=== PATIENT | male | born 1945 | race Caucasian/White ===

== ENCOUNTER → 2018-02-04 | Outpatient (CLI) | payer MEDICARE, OTHER ==
[~2018-02-04] MED LIST: AMARYL1 MG PO; ASPIR 8181 MG PO; EFFIENT10 MG PO; GLUCOPHAGE1000 MG PO; HYDROCHLOROTH12.5 M2 PO; NITROGLYCERIN0.4 MG SUBLING; PRINIVIL20 M1 PO; SYMBICORT160 MCG/4. INH; ZOCOR20 MG PO
[2018-02-04 10:54] LABS: CREATININE 0.9 mg/dL (0.6-1.3)
== END ==
LOC: M.LAB 10:30 → M.MRI 11:30
PROVIDERS: Internal Medicine
DX: E11.9 Type 2 diabetes mellitus without complications (principal); I10 Essential (primary) hypertension; G44.201 Tension-type headache, unspecified, intractable; M54.2 Cervicalgia

== ENCOUNTER → 2018-02-09 | Outpatient (CLI) | payer MEDICARE, OTHER | LOC: M.MRI 12:37 | DX: M50.323 Other cervical disc degeneration at C6-C7 level (principal); M47.892 Other spondylosis, cervical region; G31.9 Degenerative disease of nervous system, unspecified; I10 Essential (primary) hypertension; E11.9 Type 2 diabetes mellitus without complications; G44.201 Tension-type headache, unspecified, intractable ==

== ENCOUNTER → 2019-02-22 | Outpatient (CLI) | payer MEDICARE, OTHER ==
--- NOTE | 2019-02-22 16:31 | CARDNUC ---
[place] [address] CARDIAC NUCLEAR IMAGING REPORT Name: JASON WHITTAKER Room: [facility]#: [id number] Admission: 02/22/19 Attend Phys: Hesham [place] Discharge: Date of : 49 Date of Service: 02/22/19 1631 Report #: [id number] THIS REPORT FOR: //name// APPROVED REPORT Imaging Protocol: Rest Tc-99m/Stress Tc-99m 1 day Study performed: 02/22/2019 11:45:00 Indication: Chest pain, s/p stent, increased fatigue. [facility]: Lydia Montanez RN Ht: 6 ft 0 in Wt: 230 lbs BSA: 2.26 m2 BMI: 31.19 Medical History Medical History: Angina, CAD s/p stent, Diabetes, Fatigue, Former Smoker, HTN, Hyperlipidemia, Obesity , RBBB, Weakness. Medications: Clopidogrel, Metformin, Glimepiride, Lisinopril HCT, Simvastatin, ASA 81 Mg. Allergies: Cipro, Vicodin, levofloxacin, Repaglinide, Sulfa ABT. Cardiac Risk Factors: Age, DM, FHX of CAD, HTN, Hyperlipidemia, Tobacco History (Former), Past Smoker, PCI, RBBB. Previous Cardiac Procedures: PCI Pretest Chest Pain Characteristics: No chest pain Exercise History: Sedentary Physical Disabilities: Increased fatigue, weakness, unstable gait. Meds Held (24 hrs): None Resting Data Rest SPECT myocardial perfusion imaging was performed in supine position 30 minutes following the intravenous injection of 11.0 mCi of Tc-99m Sestamibi. Time of rest injection: 1225 Date: 02/22/2019 The images were gated to evaluate regional wall motion and calculate left ventricular ejection fraction. Administration Route: IV Administration Site: Left Hand Pharmacologic Stress Pharmacologic stress test was performed by injecting Regadenoson 0.4 mg IV push over 10-15 seconds immediately [place] [address] CARDIAC NUCLEAR IMAGING REPORT Name: JASON WHITTAKER Kia Room: [facility]#: [id number] Admission: 02/22/19 Attend Phys: Hesham [place] Discharge: Date of : 49 Date of Service: 02/22/19 1631 Report #: [id number] injection of 35.2 mCi of Tc-99m Sestamibi. Time of stress injection: 1350 Administration Route: IV Administration Site: Left Hand Gated Stress SPECT was performed 40 minutes after stress injection. The images were gated to evaluate regional wall motion and calculate left ventricular ejection fraction. Prone imaging was performed. Stress Test Details Stress Test: Pharmacologic stress was paired with low level exercise. Reason for pharmacologic stress test: Increased fatigue, weakness, unsteady gait.. HR Max Heart Rate (APMHR): 149 bpm Resting HR: 72 bpm Target HR (85% APMHR): 126 bpm Max HR Achieved: 108 bpm % of APMHR: 72 Recovery HR: 91 bpm HR response to stress: Normal HR response to stress BP Resting BP: 102/69 mmHg Max BP: 134/98 mmHg Recovery BP: 130/72 mmHg BP response to stress: Normal blood pressure response to stress. ECG Resting ECG: nsr rbbb Stress ECG: nsr rbbb ST Change: none Arrhythmia: none Recovery ECG: nsr rbbb Recovery ST Change: none Recovery Arrhythmia: none Clinical Reason for Termination: Completed protocol Stress Symptoms: Fatigue, Weakness, Lightheaded, Dizziness, Chest pain, Abdominal discomfort, Dyspnea. Exercise duration: 3 min 59 sec Exercise capacity: 2.07 MET[place] [address] CARDIAC NUCLEAR IMAGING REPORT Name: JASON WHITTAKER Room: [facility]#: [id number] Admission: 02/22/19 Attend Phys: Hesham [place] Discharge: Date of : 49 Date of Service: 02/22/19 1631 Report #: [id number] 73 year old male presented with increased fatigue, weakness and CP s/p stent. Patient stated he could only walk a slow, flat treadmill. Patient tolerated walking Lexiscan with reported strong dizziness at end of walk, patient assisted to bed to sit. Recovery was effective with PO caffeine. Patient escorted by staff to Nuclear Medicine for images. Patient stable with no complaints at that time. Stress ECG Conclusion nondiagnostic ECG Study Quality Study: Fair Artifact: Moderate Increased GI uptake Lung Uptake: Normal Study Data At rest, the left ventricular ejection fraction was 71%.. Post stress, the left ventricular ejection was 71%.. SSS: 0 SRS: 0 SDS: 0 TID = 1.01. Perfusion STRESS SPECT images show a small mild intensity inferior defect which is noted to be fixed when compared to the SPECT rest images. There is uniform uptake of tracer in all other segments. The prone set shows normalization of the inferior defect indicating it is likely artifact. No reversible defects are seen. Images were reviewed using FitBark. Wall Motion normal all segments Nuclear Conclusion ECG Findings: non-diagnostic Clinical Findings: negative for ischemia Nuclear Findings: negative for ischemia Exercise Capacity: not assessed Left Ventricular Function: normal Risk Study: low Negative nuclear stress test [place] [address] CARDIAC NUCLEAR IMAGING REPORT Name: JASON WHITTAKER [facility] [id number] Admission: 02/22/19 Attend Phys: Hesham [place] Discharge: Date of : 49 Date of Service: 02/22/19 1631 Report #: [id number] <Conclusion> nondiagnostic ECG <ELECTRONICALLY SIGNED> By: Vega Saha MD, FACC 02/22/191630 30 30 Vega Saha MD, FACC /INF
== END ==
LOC: M.NUC 09-03 13:59
DX: R07.9 Chest pain, unspecified (principal); I25.10 Atherosclerotic heart disease of native coronary artery without angina pectoris; E78.5 Hyperlipidemia, unspecified; I10 Essential (primary) hypertension; E11.9 Type 2 diabetes mellitus without complications; E66.9 Obesity, unspecified; Z95.0 Presence of cardiac pacemaker; Z95.5 Presence of coronary angioplasty implant and graft; Z88.8 Allergy status to other drugs, medicaments and biological substances; Z88.1 Allergy status to other antibiotic agents; Z88.2 Allergy status to sulfonamides; Z87.891 Personal history of nicotine dependence; Z82.49 Family history of ischemic heart disease and other diseases of the circulatory system; Z79.84 Long term (current) use of oral hypoglycemic drugs; Z79.899 Other long term (current) drug therapy

== ENCOUNTER → 2019-08-09 | Outpatient (CLI) | payer MEDICARE, OTHER ==
[2019-08-09 07:02] LABS: CREATININE 0.9 mg/dL (0.6-1.3)
== END ==
LOC: M.LAB 06:30 → M.MRI 07:30
PROVIDERS: Internal Medicine
DX: G31.9 Degenerative disease of nervous system, unspecified (principal); J32.8 Other chronic sinusitis; R90.82 White matter disease, unspecified; E11.9 Type 2 diabetes mellitus without complications; I10 Essential (primary) hypertension; E66.09 Other obesity due to excess calories; Z68.31 Body mass index [BMI] 31.0-31.9, adult; Z88.0 Allergy status to penicillin; Z88.2 Allergy status to sulfonamides

== ENCOUNTER 2020-07-25 09:13 | Observation (INO) | payer MEDICARE, OTHER ==
[2020-07-25] VITALS (15 sets, daily range): BP systolic 129–156; BP diastolic 65–93
[~2020-07-25] VITALS: Ht 182.9 cm; Wt 104.3 kg
[~2020-07-25 09:13] MED LIST changes: +CELEBREX 200 M200 M1 PO; +GLUCOPHAGE500 MG PO; +LISINOPRIL-HCT1 EAC1 PO; +PLAVIX 75 MG TA75 MG PO
[2020-07-25 09:49] LABS: HEMATOCRIT 42.3 % (42.0-52.0); HEMOGLOBIN 14.1 gm/dL (14.0-18.0); MCH 30.6 pg (26.0-34.0); MCHC 33.2 g/dL (28.0-37.0); MCV 92.1 fL (80.0-100.0); MPV 9.2 fl. (7.2-11.1); RBC 4.59 mil/uL (4.50-6.00); RDW-CV 14.2 % (10.5-14.5); WBC 7.5 thou/uL (4.0-11.0)
[2020-07-25 09:54] LABS: ANION GAP 5 mmol/L (7-16); BUN 17 mg/dL (7-18); CALCIUM 8.8 mg/dL (8.5-10.1); CHLORIDE 102 mmol/L (98-107); CO2 32 mmol/L (21-32); GLUCOSE 206 mg/dL (70-99); POTASSIUM 4.1 mmol/L (3.5-5.1); SODIUM 139 mmol/L (136-145)
[2020-07-25 09:57] LABS: APTT 26.8 Seconds (25.0-31.3); PROTIME 10.8 Seconds (9.20-11.50)
[2020-07-25 09:59] LABS: ALBUMIN 3.5 g/dL (3.4-5.0); ALKALINE PHOSPHATASE 61 U/L (46-116); SGOT 15 U/L (15-37); SGPT 24 U/L (30-65); TOTAL BILIRUBIN 0.5 mg/dL (<0.1-1.0); TOTAL PROTEIN 7.1 g/dL (6.4-8.2)
[2020-07-25 10:11] LABS: CHOLESTEROL 132 mg/dL (<200); HDL CHOLESTEROL 35 mg/dL (>40); LDL CHOLESTEROL 77 mg/dL (<100); SERUM ASSESSMENT Clear; TC:HDL 3.8 Ratio (Not establshd); TRIGLYCERIDE 103 mg/dL (<150); VLDL 21 mg/dL (<40)
--- NOTE | 2020-07-25 15:23 | EKG ---
[place] [address] ELECTROCARDIOGRAM REPORT Name: JASON WHITTAKER Room: [address] M.R.#: [id number] Admission: 07/25/20 Attend Phys: Hesham [place] Discharge: Date of : 49 Date of Service: 07/25/20 1033 Report #: [id number] THIS REPORT FOR: //name// [facility] Test Date: 2020-07-25 Test Time: 10:33:33 Pat Name: JASON WHITTAKER Department: Room: [facility] Gender: M Escrow Officer: ROBIN : 1945 Requested By: Matthew Valentin Order Number: [id number] Vivek MD: Matthew Valentin Measurements Intervals [place] Rate: 66 P: -7 [place]: 188 QRS: 21 QRSD: 143 T: -13 QT: 432 QTc: 453 Interpretive Statements Sinus rhythm Right bundle branch block Inferior infarct, age indeterminate Compared to ECG 12/18/2016 08:14:05 No significant changes Electronically Signed On 07-25-2020 15:23:32 CDT by Matthew Valentin [email or web address] <ELECTRONICALLY SIGNED> By: Matthew Valentin MD, [facility] 07/25/20 1523 1033 1033 Matthew Valentin MD, [facility] /EPI
--- NOTE | 2020-07-25 15:25 | EKG ---
[place] [address] ELECTROCARDIOGRAM REPORT Name: JASON WHITTAKER Room: [address] M.R.#: [id number] Admission: 07/25/20 Attend Phys: Hesham [place] Discharge: Date of : 49 Date of Service: 07/25/20 1329 Report #: [id number] THIS REPORT FOR: //name// [facility] Test Date: 2020-07-25 Test Time: 13:29:42 Pat Name: JASON WHITTAKER Department: Room: [facility] Gender: M Slack Line Yarder: : 1945 Requested By: Matthew Valentin Order Number: [id number] Vivek MD: Matthew Valentin Measurements Intervals [place] Rate: 73 P: -5 [place]: 187 QRS: -3 QRSD: 147 T: -14 QT: 421 QTc: 464 Interpretive Statements Sinus rhythm Right bundle branch block Inferior infarct, age indeterminate Compared to ECG 07/25/2020 10:33:33 No significant changes Electronically Signed On 07-25-2020 15:24:59 CDT by Matthew Valentin [email or web address] <ELECTRONICALLY SIGNED> By: Matthew Valentin MD, [facility] 07/25/20 1524 1329 1329 Matthew Valentin MD, [facility] /EPI
--- NOTE | 2020-07-25 15:37 | CARD ---
[address] [address] CARDIAC CATH REPORT Name: JASON WHITTAKER Room: [address] Tj M.RSabrina#: [id number] Admission: 07/25/20 Attend Phys: Matthew Valentin MD, Discharge: Date of : 49 Report #: [id number] THIS REPORT FOR: //name// cc: PRESTON - Family physician unknown FAM - Family physician unknown ~ APPROVED REPORT Study performed: 07/25/2020 10:38:11 Patient Details Patient Status: Out-Patient Room #: The patient is a 74 year-old male Event Personnel Matthew Valentin Lumber Driver, Rodney Euceda RN Land Classifier, Bj Mukherjee Scrub, Sindi Yanez RTR Monitor Procedures Performed Art Access - R femoral artery, Left Heart Cath w/or w/o Coronaries LHC , RD w/Atherectomy Single LAD DESATH, Hemostasis w/ Angioseal Indication Unstable angina Risk Factors Hypercholesterolemia, Hypertension Previous Procedures/Diagnoses Previous PCI Admission/Lab Medications/Medications given during procedure Angiomax IV 16 ml, Angiomax Drip IV 36.57 ml per hr, Nitroglycerin IC 350 mcg total, Zofran (Ondansetron) IV 4 mg, Effient PO 60 mg, Aspirin PO 324 mg Procedure Narrative The patient was brought electively to the Cardiac Catheterization Laboratory and was prepped and draped in a sterile manner. The right femoral was infiltrated with 2% Lidocaine subcutaneous anesthesia. A 6F Weston sheath was inserted into the right femoral artery. Coronary angiography was performed using coronary diagnostic catheters. The right coronary system was accessed and visualized with a 6F JR4 catheter. The left [place] [address] CARDIAC CATH REPORT Name: JASON WHITTAKER [address]: [address] [id number] Admission: 07/25/20 Attend Phys: Matthew Valentin MD, Discharge: Date of : 49 Report #: [id number] visualized with a 6F JL4 catheter. The left ventricle was accessed and visualized with a 6F Pigtail catheter. Left ventricular/Aortic Valve gradient assessed via catheter pullback. Left ventriculogram was performed in TORRES projection. Pre-demployment femoral angiogram was performed . Closure device was deployed with a 6 Fr Angioseal STS. The patient tolerated the procedure well and there were no complications associated with the procedure. There was no hematoma. Intraoperative Conscious Sedation Sedation start time: 10:48 Case end Time: 11:48 Fentanyl 75 mcg Versed 4 mg Fluoro Time: 17.7 minutes Dose: DAP 132901 cGycm2 3257 mGy Contrast Type and Amount: Visipaque 380 ml Diagnostic Cath Left Main 0% narrowing LAD 90% proximal and 75% mid LAD in-stent restenosis Diagonal 1 40% mid vessel narrowing Diagonal 2 Very small vessel 80% proximal narrowing Circumflex 30% narrowing of the midportion of the first marginal branch Right Coronary Dominant vessel with 40% proximal narrowing Left Ventriculography The left ventricle is normal in size with normal contractility. The left ventricular ejection fraction is estimated to be 65%. Left ventricular wall motion abnormalities are not present. There is no mitral insufficiency. Hemodynamics The aortic pressure is 162/76 mmHg with a mean of 100 mmHg. The left ventricular pressure is 161/2 mmHg with a mean of mmHg. The left ventricular end diastolic pressure is 14 mmHg. PCI Technique Lesion Anticoagulation was achieved with Angiomax. Patient was preloaded with Angiomax IV 16 ml. Percutaneous coronary intervention was performed on the proximal left anterior descending artery segment. The lesion stenosis prior to intervention was 90% with DANNY 3 flow. A 6FR LAUNCHER EBU 3.5 Guide Catheter was used to engage the lm ostium. A BMW 190cm Interventional Guidewire [place] [address] CARDIAC CATH REPORT Name: JASON WHITTAKER Room: [address] M.R.#: [id number] Admission: 07/25/20 Attend Phys: Matthew Valentin MD, Discharge: Date of : 49 Report #: [id number] BALLOON DILATION A Balloon catheter NC Euphora 2.5x12 was inserted and inflated up to 17.00atm for 10seconds. Additional Inflation: 20.00atm for 7seconds. Additional Inflation: 16.00atm for 6seconds. An Athrectomy cutting balloon catheter AngioSculpt PTCA 2.5 x 10mm was inserted and inflated up to 16 fozia for 12 seconds. Additional inflations: 18 fozia for 10 seconds; 20 fozia for 16 seconds; 20 fozia for 13 seconds; 22 fozia for 11 seconds. STENT DEPLOYMENT A drug-eluting stent Rivas RX Stent 2.16N51ei was inserted and inflated up to 16.00atm for 9seconds. Additional Inflation: 18.00atm for 11seconds. Additional Inflation: 20.00atm for 9seconds. Final angiography reveals 0 % stenosis with DANNY 3 flow. PCI Technique Lesion 2 Percutaneous Coronary Intervention was performed on the mid left anterior descending artery segment. Patient was preloaded with Angiomax IV 16 ml. The lesion stenosis prior to intervention was 75% with DANNY 3 flow. A 6FR LAUNCHER EBU 3.5 Guide Catheter was used to engage the lm ostium. A BMW 190cm Interventional Guidewire was used to cross the lesion. Balloon Dilation A Balloon catheter NC Euphora 2.5x12 was inserted and inflated up to 18.00atm for 14seconds. An Athrectomy cutting balloon catheter AngioSculpt PTCA 2.5 x 10mm was inserted and inflated up to 16 fozia for 10 seconds. Additional inflation: 18 fozia for 11 seconds. Stent Deployment A drug-eluting stent [place] RX Stent 2.92Y60xk was inserted and inflated up to 15.00atm for 8seconds. Additional Inflation: 18.00atm for 5seconds. Final angiography reveals 0 % stenosis with DANNY 3 flow. Conclusion 1. Significant coronary artery disease characterized by the following: A 90% proximal and 75% mid LAD in-stent restenosis B 30% narrowing of the midportion of the first marginal branch of the [address] [address] CARDIAC CATH REPORT Name: JASON WHITTAKER Room: [address] Tj Franco#: [id number] Admission: 07/25/20 Attend Phys: Matthew Valentin MD, Discharge: Date of : 49 Report #: [id number] nondominant circumflex C dominant right coronary with 40% proximal narrowing 2. Normal left ventricular systolic function, estimated ejection fraction being 65% 3. Moderate systemic systolic hypertension 4. Successful angioplasty atherotomy/atherectomy and deployment of sequential drug-eluting stents at the sites of 90% and 75% proximal and mid LAD stenosis with 0% residual narrowings and DANNY-3 flow to the distal vessel Recommendations Cardiac Risk Reduction Program Aggressive Medical Therapy Medications Administered Aspirin (any) Prasugrel Diagnostic Cath Approved by: Matthew Valentin MD Date/Time: 07/25/2020 15:32:37 <ELECTRONICALLY SIGNED> By: Matthew Valentin MD, [facility] 07/25/20 1536 1536 1536Joalessandra Valentin MD, FACC /INF
[2020-07-26] VITALS: BP 148/79
[2020-07-26 03:47] VITALS: BP 156/75
[2020-07-26 06:03] LABS: HEMATOCRIT 41.6 % (42.0-52.0); HEMOGLOBIN 13.8 gm/dL (14.0-18.0); MCH 30.8 pg (26.0-34.0); MCHC 33.2 g/dL (28.0-37.0); MCV 92.9 fL (80.0-100.0); MPV 9.5 fl. (7.2-11.1); RBC 4.48 mil/uL (4.50-6.00); RDW-CV 14.1 % (10.5-14.5); WBC 6.3 thou/uL (4.0-11.0)
[2020-07-26 06:13] LABS: ALBUMIN 3.2 g/dL (3.4-5.0); ALKALINE PHOSPHATASE 55 U/L (46-116); ANION GAP 8 mmol/L (7-16); BUN 15 mg/dL (7-18); CALCIUM 8.8 mg/dL (8.5-10.1); CHLORIDE 106 mmol/L (98-107); CO2 26 mmol/L (21-32); CREATININE 0.9 mg/dL (0.6-1.3); GLUCOSE 186 mg/dL (70-99); SGOT 14 U/L (15-37); SGPT 21 U/L (30-65); SODIUM 140 mmol/L (136-145); TOTAL BILIRUBIN 0.7 mg/dL (<0.1-1.0); TOTAL PROTEIN 6.6 g/dL (6.4-8.2)
[2020-07-26 06:58] LABS: TROPONIN-I LEVEL <0.06 ng/mL (<0.06)
[2020-07-26 09:14] VITALS: BP 152/83
[2020-07-26] MEDS ORDERED: EFFIENT10 MG PO (10:12)
[2020-07-26] MEDS ORDERED: NITROSTAT0.4 M1 SUBLING (10:13)
[2020-07-26 10:14] VITALS: BP 152/83
[2020-07-26 11:00] VITALS: BP 152/83
--- NOTE | 2020-07-26 12:40 | EKG ---
[place] [address] ELECTROCARDIOGRAM REPORT Name: REMEDIOSJASON MARINELLI Room: [address] M.R.#: [id number] Admission: 07/25/20 Attend Phys: Hesham [place] Discharge: 07/26/20 Date of : 49 Date of Service: 07/26/20 0400 Report #: [id number] THIS REPORT FOR: //name// [facility] Test Date: 2020-07-26 Test Time: 04:00:37 Pat Name: JASON WHITTAKER Department: Room: [facility] Gender: M Onsite Case Manager: ADINA : 1945 Requested By: Matthew Valentin Order Number: [id number] Vivek MD: Matthew Valentin Measurements Intervals [place] Rate: 74 P: -11 SD: 175 QRS: 16 QRSD: 152 T: -14 QT: 409 QTc: 454 Interpretive Statements Sinus rhythm Right bundle branch block Inferior infarct, age indeterminate Compared to ECG 07/25/2020 13:29:42 No significant changes Electronically Signed On 07-26-2020 12:40:39 CDT by Matthew Valentin [email or web address] <ELECTRONICALLY SIGNED> By: Matthew Valentin MD, [facility] 07/26/20 1240 0400 0400 Matthew Valentin MD, [facility] /EPI
--- NOTE | 2020-07-26 13:23 | D ---
[address] [address] DISCHARGE SUMMARY Name: JASON WHITTAKER Room: [address] Tj Franco#: [id number] Admission: 07/25/20 Attend Phys: Matthew Valentin MD, Discharge: 07/26/20 Date of : 49 Report #: [id number] THIS REPORT FOR: //name// cc: FAM - Family physician unknown FAM - Family physician unknown ~ THIS REPORT FOR: //name// CC: FAM unknown Matthew Valentin DATE OF SERVICE: 07/26/2020 FINAL DISCHARGE DIAGNOSES: 1. Unstable angina. 2. Coronary artery disease. 3. Status post percutaneous coronary intervention with atherectomy and stenting of the left anterior descending. 4. Hyperlipidemia. 5. Type 2 diabetes. 6. Hypertension. 7. Exogenous obesity. PROCEDURES: 07/25/2020 -- left heart catheterization, left ventriculography, selective coronary arteriography, and percutaneous coronary intervention with angioplasty, atherectomy and stenting of tandem 90 and 75% proximal and mid LAD stenosis. HOSPITAL COURSE: The patient is a very pleasant 74-year-old male with complex coronary artery disease, status post prior PCIs. He has underlying hyperlipidemia, diabetes, hypertension, and weight excess. Recently, he has noted marked decrease in functional capacity with dyspnea on moderate exertion, chest fullness or pressure. This was similar to his prior ischemic syndrome. He had been able to walk 3 miles without difficulty; lately he is unable to complete a 1/2 mile to a mile without significant dyspnea and chest discomfort. The pattern was compatible with unstable angina. In this context, I performed cardiac catheterization on 07/25/2020, which revealed significant coronary artery disease characterized by tandem 90 and 75% proximal and mid LAD in-stent restenotic lesions. Left ventricular function was normal with an ejection fraction of 65%. There were no significant stenoses of the circumflex and right coronary artery. Given this data, I performed angioplasty, arthrotomy/atherectomy, and stenting with deployment of two drug-eluting stents at the sites of 90 and 75% [place] [address] DISCHARGE SUMMARY Name: JASON WHITTAKER Room: [address] Tj Franco#: [id number] Admission: 07/25/20 Attend Phys: Matthew Valentin MD, Discharge: 07/26/20 Date of : 49 Report #: [id number] mid LAD stenosis with 0% residual narrowing at both sites following stent deployment and DANNY 3 flow of the distal vessel. He did well post-procedurally and there was good hemostasis at the right femoral site of catheterization. LABORATORY DATA: On 07/26 revealed a sodium of 140, potassium 4.0, BUN 15, creatinine 0.9, glucose 186. Hemoglobin 13.8, white blood cell count 6300 and 130,000 platelets. Troponin was 0.06. DISCHARGE MEDICATIONS: The patient was discharged to home in stable condition on the following medications: Aspirin 81 mg daily, glimepiride or Amaryl 1 mg daily, lisinopril/hydrochlorothiazide 20/12.5 one tablet daily, metformin 500 mg b.i.d. to be resumed on 07/27/2020, prasugrel 10 mg daily with a 60 mg loading dose started on 07/25, simvastatin 10 mg daily, Celebrex 200 mg on a p.r.n. basis for arthritic discomfort, and p.r.n. sublingual nitroglycerin. I will plan to see the patient in followup in 4-6 weeks. Therefore, the patient is discharged to home in stable condition on the aforementioned medications with followup as described above. <ELECTRONICALLY SIGNED> By: Matthew Valentin MD, FACC 07/26/20 1323 0933 0951Matthew Valentin MD, FAC /nt
== END 2020-07-26 11:15 | disposition home or self-care (01) ==
LOC: M.CL 09:13 → M.2W 11:25 → M.TBA-CV 11:25 → M.2W 12:13
PROVIDERS: ADMIT Internal Medicine; ATTEND Internal Medicine
DX: I25.110 Atherosclerotic heart disease of native coronary artery with unstable angina pectoris (principal); E78.5 Hyperlipidemia, unspecified; I10 Essential (primary) hypertension; E11.9 Type 2 diabetes mellitus without complications; E66.09 Other obesity due to excess calories; Z68.31 Body mass index [BMI] 31.0-31.9, adult; Z79.899 Other long term (current) drug therapy; Z20.828 Contact with and (suspected) exposure to other viral communicable diseases

== ENCOUNTER → 2020-12-17 | Outpatient (CLI) | payer MEDICARE, OTHER ==
[~2020-12-17] MED LIST changes: +NITROSTAT0.4 M1 SUBLING
--- NOTE | 2020-12-18 18:16 | CARDNUC ---
[place] [address] CARDIAC NUCLEAR IMAGING REPORT Name: JASON WHITTKAER Room: [facility]#: [id number] Admission: 12/17/20 Attend Phys: Hesham Fishman Discharge: Date of : 49 Date of Service: 12/18/20 1816 Report #: [id number] THIS REPORT FOR: cc: FAM - Family physician unknown FAM - Family physician unknown Stephen Cardozo MD [facility] ~ APPROVED REPORT Imaging Protocol: Stress Tc-99m/Rest Tc-99m 1 day Study performed: 12/17/2020 12:30:00 Indication: chest pain, ZUÑIGA, CAD s/p PCI. Patient Location: Out-Patient Stress Tech: Khadra White Stress Nurse: Lydia Montanez RN Ht: 5 ft 10 in Wt: 230 lbs BSA: 2.21 m2 BMI: 32.99 Medical History Medical History: Chest pain, ZUÑIGA, Sleep Apnea, COPD, Back surgery, RBBB, CAD s/p stent, HTN, HLD, DM II, past smoker, obesity. Medications: ASA 81 Mg, Lisinopril-HCTZ, Prasugrel, Simvastatin, NTG. Allergies: Sulfa ABX, Rapaglinide, Ciprofloaxin, Hydrocodone, Levofloxacin. Cardiac Risk Factors: Age, DM, FHX of CAD, HTN, Hyperlipidemia, SOB, Past Smoker, RBBB. Previous Cardiac Procedures: PCI Pretest Chest Pain Characteristics: No chest pain Exercise History: Indeterminate Physical Disabilities: Slow, shuffled gait. Meds Held (24 hrs): NTG. Resting Data Rest SPECT myocardial perfusion imaging was performed in supine position 30 minutes following the intravenous injection of 10.0 mCi of Tc-99m Sestamibi. Time of rest injection: 13:00 The images were gated to evaluate regional wall motion and calculate left ventricular ejection fraction. Administration Route: IV Administration Site: [place] [address] CARDIAC NUCLEAR IMAGING REPORT Name: JASON WHITTAKER [id number] Admission: 12/17/20 Attend Phys: Hesham Fishman Discharge: Date of : 49 Date of Service: 12/18/20 1816 Report #: [id number] Pharmacologic Stress Pharmacologic stress test was performed by injecting Regadenoson 0.4 mg IV push over 10-15 seconds immediately followed by the intravenous injection of 29.8 mCi of Tc-99m Sestamibi. Time of stress injection: 14:50 Administration Route: IV Administration Site: Left Heart Rate at time of stress injection: 107 bpm. Gated Stress SPECT was performed 40 minutes after stress injection. The images were gated to evaluate regional wall motion and calculate left ventricular ejection fraction. Prone imaging was performed. Stress Test Details Stress Test: Pharmacologic stress was paired with low level exercise. Reason for pharmacologic stress test: Slow, shuffled gait.. HR Max Heart Rate (APMHR): 147 bpm Resting HR: 78 bpm Target HR (85% APMHR): 124 bpm Max HR Achieved: 107 bpm % of APMHR: 72 Recovery HR: 92 bpm BP Resting BP: 119/73 mmHg Max BP: 152/75 mmHg Recovery BP: 111/66 mmHg ECG Resting ECG: Sinus Rhythm, RBBB Stress ECG: Sinus tachycardia , RBBB ST Change: None Arrhythmia: None Recovery ECG: Sinus Rhythm, RBBB Recovery ST Change: None Recovery Arrhythmia: None Clinical Reason for Termination: Completed protocol Stress Symptoms: Dyspnea, weakness, chest pain 5/10, headache, lightheaded/dizzy. Exercise duration: 4 min 00 sec Exercise capacity: 2.30 METs The patient reported 5 out of 10 chest pain [place] [address] CARDIAC NUCLEAR IMAGING REPORT Name: JASON WHITTAKER Room: [facility]#: [id number] Admission: 12/17/20 Attend Phys: Hesham Fishman Discharge: Date of : 49 Date of Service: 12/18/20 1816 Report #: [id number] protocol that resolved in recovery. Nurse Comments A 75 year old male presented for a walking Lexiscan for chest pain, ZUÑIGA, CAD s/p PCI. Treadmill tolerated to 3:00 then patient became dizzy/lightheaded and asked to stop. Remainder of test changed to sitting and swinging legs to 4:00. Recovery unremarkable. Patient was escorted via wheelchair to Nuclear Medicine for imaging. Patient was stable and stated he felt good at that time. Stress ECG Conclusion Baseline twelve-lead EKG shows sinus rhythm without significant ST segment or T wave abnormality. The patient has an underlying right bundle branch block. EKGs obtained during and post walking Lexiscan protocol show no significant ST segment changes when compared to baseline. There were no stress-induced arrhythmias. Study Quality Study: Good Artifact: No artifact Study Data At rest, the left ventricular ejection fraction was 71%.. Post stress, the left ventricular ejection was 74%.. TID = 0.96. Perfusion Perfusion images obtained at rest and post Lexiscan walking protocol show uniform uptake of the radioisotope throughout the myocardium. There were no defects to suggest infarct or ischemia. Wall Motion Normal left ventricular wall motion. Nuclear Conclusion ECG Findings: negative for ischemia Clinical Findings: equivocal Nuclear Findings: negative for ischemia Exercise Capacity: not assessed Left Ventricular Function: normal Risk Study: low Perfusion study show no defect to suggest infarct or ischemia. Left ventricular systolic function is normal on gated studies. Clinical findings of chest pain were likely due to medication effect. This is [place] [address] CARDIAC NUCLEAR IMAGING REPORT Name: JASON WHITTAKER Room: [facility]#: [id number] Admission: 12/17/20 Attend Phys: Hesham Fishman Discharge: Date of : 49 Date of Service: 12/18/20 1816 Report #: [id number] <Conclusion> Baseline twelve-lead EKG shows sinus rhythm without significant ST segment or T wave abnormality. The patient has an underlying right bundle branch block. EKGs obtained during and post walking Lexiscan protocol show no significant ST segment changes when compared to baseline. There were no stress-induced arrhythmias. <ELECTRONICALLY SIGNED> By: Stephne Cardozo MD, FACC 12/18/201815 15 15 Stephen Cardozo MD, FACC /INF
== END ==
LOC: M.NUC 08:00
PROVIDERS: ATTEND Internal Medicine
DX: I25.119 Atherosclerotic heart disease of native coronary artery with unspecified angina pectoris (principal); Z95.5 Presence of coronary angioplasty implant and graft

== ENCOUNTER → 2021-12-20 | Outpatient (CLI) | payer MEDICARE, OTHER ==
--- NOTE | 2021-12-21 12:47 | CARDNUC ---
[place] [address] CARDIAC NUCLEAR IMAGING REPORT Name: JASON WHITTAKER Room: [facility]#: [id number] Admission: 12/20/21 Attend Phys: Hesham Fishman Discharge: Date of : 49 Date of Service: 12/21/21 1247 Report #: [id number] THIS REPORT FOR: cc: Physician not on staff Physician not on staff Stephen Cardozo MD [facility] ~ APPROVED REPORT Study performed: 12/20/2021 13:37:43 Exam: Nuclear Stress Test Indication: Dyspnea Patient Location: Out-Patient Stress Nurse: Aishwarya Ivy RN Ht: 6 ft 0 in Wt: 220 lbs BSA: 2.22 m2 BMI: 29.83 Medical History Medical History: CAD s/p stent, Diabetes, HTN, Hyperlipidemia Medications: ASA-91, LISINOPRIL/HCTZ, NTG, PRASUGREL, SIMVASTATIN Allergies: MULTIPLE Cardiac Risk Factors: Age, Diabetes (insulin), FHX of CAD, HTN, Hyperlipidemia, Past Smoker Previous Cardiac Procedures: PCI Exercise History: Indeterminate Stress Test Details Stress Test: Pharmacologic stress testing performed using 0.4 mg of regadenoson per 5 mL given IV over 10 seconds. Reason for pharmacologic stress test: physical limitation. HR Resting HR: 69 bpm Max Heart Rate (APMHR): 146 bpm Max HR Achieved: 92 bpm Target HR (85% APMHR): 124 bpm % of APMHR: 63 Recovery HR: 82 bpm BP Resting BP: 142/80 mmHg Max BP: 118/[place] [address] CARDIAC NUCLEAR IMAGING REPORT Name: REMEDIOSJASON ISIS Room: [facility]#: [id number] Admission: 12/20/21 Attend Phys: Hesham Fishman Discharge: Date of : 49 Date of Service: 12/21/21 1247 Report #: [id number] ECG Resting ECG: Sinus Rhythm, RBBB Stress ECG: Sinus Rhythm, RBBB ST Change: None Arrhythmia: None Recovery ECG: Sinus Rhythm, RBBB Recovery ST Change: None Recovery Arrhythmia: None Clinical Reason for Termination: Completed protocol The patient had mild chest discomfort with Lexiscan infusion resolved with caffeine. Nurse Comments CAFFEINE 60 MG IVP GIVEN FOR CONTINUING CO OF "NOT FEELING RIGHT" , PATIENT BECAME CALMER AND DENIED CP OR OTHER PROBLEMS AFTER CAFFEINE Stress ECG Conclusion The baseline twelve-lead EKG shows sinus rhythm with right bundle branch block without significant ST segment abnormality. EKGs obtained during and post Lexiscan infusion show sinus rhythm with no significant ST segment changes when compared to baseline. There were no stress-induced arrhythmias. NM EXAM: Myocardial Perfusion REST/STRESS Resting Data Rest SPECT myocardial perfusion imaging was performed in supine position 30 minutes following the intravenous injection of 11.0 mCi of Tc-99m Sestamibi. Time of rest injection: 12:30 The images were gated to evaluate regional wall motion and calculate left ventricular ejection fraction. Administration Route: IV Pharmacologic Stress Pharmacologic stress test was performed by injecting Regadenoson 0.4 mg IV push followed by the intravenous injection of 35.3 mCi of Tc-99m Sestamibi. Time of stress injection: 13:45 Administration Route: IV Heart Rate at time of stress injection: 92 bpm. Gated Stress SPECT was performed 45 minutes [place] [address] CARDIAC NUCLEAR IMAGING REPORT Name: REMEDIOSJASONASHLEIGH MARINELLI Room: [facility]#: [id number] Admission: 12/20/21 Attend Phys: Hesham Fishman Discharge: Date of : 49 Date of Service: 12/21/21 1247 Report #: [id number] The images were gated to evaluate regional wall motion and calculate left ventricular ejection fraction. Prone imaging was performed. Study Quality Study: Good Artifact: No artifact Study Data At rest, the left ventricular ejection fraction was 75%.. Post stress, the left ventricular ejection was 73%.. TID = 0.98. Perfusion Perfusion images obtained in the supine position at rest and post Lexiscan stress show mild photopenia in the inferior inferolateral wall consistent with diaphragmatic attenuation artifact. Post-rest perfusion images obtained in the prone position show uniform uptake of the radioisotope throughout the myocardium. There were no defects to suggest infarct or ischemia. Wall Motion Normal left ventricular wall motion. Nuclear Conclusion ECG Findings: negative for ischemia Clinical Findings: equivocal Nuclear Findings: negative for ischemia Exercise Capacity: not assessed Left Ventricular Function: normal Risk Study: low Perfusion study show no defect to suggest infarct or ischemia. Left ventricular systolic function appears normal on gated studies. This is a low risk study. <Conclusion> The baseline twelve-lead EKG shows sinus rhythm with right bundle branch block without significant ST segment abnormality. EKGs obtained during and post Lexiscan infusion show sinus rhythm with no significant ST segment changes when compared to baseline. There were no stress-induced arrhythmias. <ELECTRONICALLY SIGNED> By: Stephen Cardozo MD, FACC 12/21/21 1247 1247 1247 Stephen Cardozo MD, FACC /INF
== END ==
LOC: M.NUC 06-26 08:54
PROVIDERS: ATTEND Internal Medicine
DX: I25.10 Atherosclerotic heart disease of native coronary artery without angina pectoris (principal); E11.9 Type 2 diabetes mellitus without complications; Z95.5 Presence of coronary angioplasty implant and graft